=== PATIENT | female | born 1985 ===

== ENCOUNTER 2020-08-25 12:32 | Emergency (ER) | payer SELFPAY ==
--- NOTE | 2020-08-25 13:50 | Vascular Lab Report ---
DUPLEX DOPPLER LOWER EXTREMITY VEINS, RIGHT INDICATION / CLINICAL INFORMATION: Pain and swelling in the right lower extremity. TECHNIQUE: Duplex doppler imaging was performed through the veins of the right lower extremity using venous comp ression and other maneuvers. COMPARISON: None available. FINDINGS: RIGHT COMMON FEMORAL VEIN: Negative. RIGHT FEMORAL VEIN: Negative. RIGHT POPLITEAL VEIN: Negative. RIGHT CALF VEINS: Negative. ADDITIONAL FINDINGS: Popliteal cyst on the right noted measuring 2.9 x 1.3 x 4.2 cm. IMPRESSION: 1. No sonographic evidence for DVT in the right lower extremity. 2. Right popliteal cyst. Signer Name: Scott Morton MD Signed: 08/25/2020 1:46 PM Workstation Name: [id number]
--- NOTE | 2020-08-25 13:57 | Cat Scan Report ---
NONENHANCED CT SCAN OF THE HEAD: INDICATION / CLINICAL INFORMATION: 34 years Female; Left sided GARCIA. TECHNIQUE: Routine CT head without contrast. All CT scans at this location are performed using CT dos e reduction for ALARA by means of automated exposure control. COMPARISON: None. FINDINGS: BRAIN / INTRACRANIAL CONTENTS: No acute hemorrhage, mass effect, midline shift, hydrocephalus, or acu te, large territorial infarct. No chronic infarct or focal atrophy. Normal brain volume and ventricul ar/sulcal size for age. No significant white matter abnormality. CRANIOCERVICAL JUNCTION: No significant abnormality. ORBITS: No significant abnormality of visualized orbits. SINUSES / MASTOIDS: No significant abnormality of the visualized paranasal sinuses or mastoid air elida ls. ADDITIONAL FINDINGS: None. IMPRESSION: Normal nonenhanced CT scan of the brain Signer Name: Michael Marion MD Signed: 08/25/2020 1:52 PM Workstation Name: [id number]
[2020-08-25] MEDS ORDERED: traMADol 50 MG TAB PO ONE (15:26)
[2020-08-25] MEDS ORDERED: dexAMETHasone 20 MG/5 ML VIAL IM ONE (15:26)
--- NOTE | 2020-08-25 15:41 | Emergency Department Report ---
ED General Adult HPI - General Chief complaint: Headache Stated complaint: NECK PAIN/HEADACHE Time Seen by Provider: 08/25/20 15:17 Source: patient Mode of arrival: Ambulatory Limitations: No Limitations - History of Present Illness Initial comments: Patient is a 34-year-old female who presents emergency room with complaints of left-sided neck pain that began 3 weeks ago. She states that she also has a left-sided headache that has been ongoing for 3 weeks. She states that occasionally she feels tingling in her bilateral hands. She denies any fall or injury. She denies any complete numbness, weakness, nausea, vomiting, diarrhea, fever, vision changes. She states that also for several weeks she has intermittent swelling of her right foot but denies any swelling currently. She denies any calf pain, fall, injury. Past medical history of herniated disc, asthma, heart thrombus which she is currently on Eliquis. She denies any missed doses of Eliquis. No allergies to medications. - Related Data Previous Rx's Medication Instructions Recorded Last Taken Type Amoxicillin/Potassium Clav 1 each PO BID 10 Days #20 tablet 08/25/20 Unknown Rx [Augmentin 875-125 Tablet] Gabapentin 100 mg PO Q8HR PRN #20 capsule 08/25/20 Unknown Rx HYDROcodone/APAP 5-325 [Cohocton 1 each PO Q6HR PRN #12 tablet 08/25/20 Unknown Rx 5/325] Prednisone [predniSONE 10 mg 10 mg PO .TAPER #1 tab.ds.pk 08/25/20 Unknown Rx (6-Day Pack, 21 Tabs)] Allergies Allergy/AdvReac Type Severity Reaction Status Date / Time No Known Allergies Allergy Unverified 08/25/20 12:46 ED Review of Systems ROS: Stated complaint: NECK PAIN/HEADACHE Other details as noted in HPI Comment: All other systems reviewed and negative ED Past Medical Hx - Past Medical History Previous Medical History?: Yes Hx Congestive Heart Failure: Yes - Surgical History Past Surgical History?: Yes Additional Surgical History: Hysterectomy. Gastric sleeve. back surgery - Medications Home Medications: Home Medications Medication Instructions Recorded Confirmed Last Taken Type Amoxicillin/Potassium Clav 1 each PO BID 10 Days #20 tablet 08/25/20 Unknown Rx [Augmentin 875-125 Tablet] Gabapentin 100 mg PO Q8HR PRN #20 capsule 08/25/20 Unknown Rx HYDROcodone/APAP 5-325 [Cohocton 1 each PO Q6HR PRN #12 tablet 08/25/20 Unknown Rx 5/325] Prednisone [predniSONE 10 mg 10 mg PO .TAPER #1 tab.ds.pk 08/25/20 Unknown Rx (6-Day Pack, 21 Tabs)] ED Physical Exam - General Limitations: No Limitations General appearance: alert, in no apparent distress - Head Head exam: Present: atraumatic, normocephalic - Eye Eye exam: Present: normal appearance, PERRL, EOMI. Absent: periorbital swelling, periorbital tenderness Pupils: Present: normal accommodation - ENT ENT exam: Present: mucous membranes moist - Neck Neck exam: Present: normal inspection, tenderness (left sided C-spine paraspinal muscular ttp, no midline C-spine, T-spine or L-spine ttp, no step offs, no deformities), full ROM, other (no carotid bruit). Absent: meningismus, lymphadenopathy, thyromegaly - Respiratory Respiratory exam: Present: normal lung sounds bilaterally. Absent: respiratory distress, wheezes, rales, rhonchi, stridor, chest wall tenderness, accessory muscle use, decreased breath sounds, prolonged expiratory - Cardiovascular Cardiovascular Exam: Present: regular rate, normal rhythm, normal heart sounds. Absent: systolic murmur, diastolic murmur, rubs, gallop - Extremities Exam Extremities exam: Present: normal inspection, full ROM, normal capillary refill, other (no edema of the BLE, no calf ttp bilaterally, no increased warmth, no erythema, no skin changes, FROM of the BLE, neurovascularly intact). Absent: tenderness, pedal edema, joint swelling, calf tenderness - Back Exam Back exam: Present: normal inspection, full ROM. Absent: paraspinal tenderness, vertebral tenderness - Neurological Exam Neurological exam: Present: alert, oriented X3 - Psychiatric Psychiatric exam: Present: normal affect, normal mood - Skin Skin exam: Present: warm, dry, intact ED Course Vital Signs 08/25/20 08/25/20 12:47 17:32 Temperature 98.0 F Pulse Rate 77 76 Respiratory 8 L 16 Rate Blood Pressure 145/92 Blood Pressure 144/87 [Right] O2 Sat by Pulse 100 100 Oximetry ED Medical Decision Making - Radiology Data Radiology results: report reviewed NONENHANCED CT SCAN OF THE HEAD: INDICATION / CLINICAL INFORMATION: 34 years Female; Left sided GARCIA. TECHNIQUE: Routine CT head without contrast. All CT scans at this location are performed using CT dose reduction for ALARA by means of automated exposure control. COMPARISON: None. FINDINGS: BRAIN / INTRACRANIAL CONTENTS: No acute hemorrhage, mass effect, midline shift, hydrocephalus, or acute, large territorial infarct. No chronic infarct or focal atrophy. Normal brain volume and ventricular/sulcal size for age. No significant white matter abnormality. CRANIOCERVICAL JUNCTION: No significant abnormality. ORBITS: No significant abnormality of visualized orbits. SINUSES / MASTOIDS: No significant abnormality of the visualized paranasal sinuses or mastoid air cells. ADDITIONAL FINDINGS: None. IMPRESSION: Normal nonenhanced CT scan of the brain Signer Name: Michael Marion MD Signed: 08/25/2020 1:52 PM Workstation Name: [id number] Transcribed By: Dictated By: Michael Veronica MD Electronically Authenticated By: Michael Veronica MD Signed Date/Time: 08/25/20 135 DD/ 1351 TD/TT: DUPLEX DOPPLER LOWER EXTREMITY VEINS, RIGHT INDICATION / CLINICAL INFORMATION: Pain and swelling in the right lower extremity. TECHNIQUE: Duplex doppler imaging was performed through the veins of the right lower extremity using venous compression and other maneuvers. COMPARISON: None available. FINDINGS: RIGHT COMMON FEMORAL VEIN: Negative. RIGHT FEMORAL VEIN: Negative. RIGHT POPLITEAL VEIN: Negative. RIGHT CALF VEINS: Negative. ADDITIONAL FINDINGS: Popliteal cyst on the right noted measuring 2.9 x 1.3 x 4.2 cm. IMPRESSION: 1. No sonographic evidence for DVT in the right lower extremity. 2. Right popliteal cyst. Signer Name: Scott Geller MD Signed: 08/25/2020 1:46 PM Workstation Name: [id number] Transcribed By: Dictated By: SCOTT GELLER Electronically Authenticated By: SCOTT GELLER Signed Date/Time: 08/25/20 1346 DD/ 134 TD/TT: - Medical Decision Making Patient is a 34-year-old female who presents emergency room with complaints of left-sided neck pain that began 3 weeks ago. She states that she also has a left-sided headache that has been ongoing for 3 weeks. She states that occasionally she feels tingling in her bilateral hands. She denies any fall or injury. She denies any complete numbness, weakness, nausea, vomiting, diarrhea, fever, vision changes. She states that also for several weeks she has intermittent swelling of her right foot but denies any swelling currently. She denies any calf pain, fall, injury. Past medical history of herniated disc, asthma, heart thrombus which she is currently on Eliquis. She denies any missed doses of Eliquis. No allergies to medications. VSS. on exam: left sided C- spine paraspinal muscular ttp, no midline C-spine, T-spine or L-spine ttp, no step offs, no deformities, no edema of the BLE, no calf ttp bilaterally, no increased warmth, no erythema, no skin changes, FROM of the BLE, neurovascularly intact. imaging was ordered and completed prior to my examination. CT head: Normal nonenhanced CT scan of the brain. US RLE: 1. No sonographic evidence for DVT in the right lower extremity. 2. Right popliteal cyst. Patient given tramadol, Robaxin, dexamethasone, morphine while in the emergency department and continues to have discomfort. Dr. Merino, ER attending evaluated patient at bedside and states that symptoms appear most consistent with cervical radiculopathy and advised to give patient 1 g of Dilaudid IM and she also had some mild left-sided maxillary sinus tenderness to percussion, advised to treat patient for acute sinusitis and cervical radiculopathy, advised to give patient Augmentin, Neurontin, Cohocton, prednisone. Symptoms improved after Dilaudid IM. Patient referred to orthopedic/spine and primary care physician. Advised patient Please take medication as prescribed. Do not drive or operate machinery while taking pain medication. Increase your water intake. Follow-up with your primary care doctor. Follow-up with orthopedic/spine doctor. Return to emergency room for any new or worsening symptoms. - Differential Diagnosis Cervical radiculopathy, muscle strain, neuropathy, herniated disc, DDD Critical care attestation.: If time is entered above; I have spent that time in minutes in the direct care of this critically ill patient, excluding procedure time. ED Disposition Clinical Impression: Neck pain Headache Qualifiers: Headache type: unspecified Headache chronicity pattern: acute headache Intractability: not intractable Qualified Code(s): R51.9 - Headache, unspecified Acute sinusitis Qualifiers: Sinusitis location: maxillary Recurrence: non-recurrent Qualified Code(s): J01.00 - Acute maxillary sinusitis, unspecified Disposition: - TO HOME OR SELFCARE Is pt being admited?: No Does the pt Need Aspirin: No Condition: Stable Instructions: Sinusitis (ED), Cervical Radiculopathy (ED) Additional Instructions: Please take medication as prescribed. Do not drive or operate machinery while taking pain medication. Increase your water intake. Follow-up with your primary care doctor. Follow-up with orthopedic/spine doctor. Return to emergency room for any new or worsening symptoms. Prescriptions: Amoxicillin/Potassium Clav [Augmentin 875-125 Tablet] 1 each PO BID 10 Days #20 tablet Gabapentin 100 mg PO Q8HR PRN #20 capsule PRN Reason: pain HYDROcodone/APAP 5-325 [Cohocton 5/325] 1 each PO Q6HR PRN #12 tablet PRN Reason: Pain , Severe (7-10) Prednisone [predniSONE 10 mg (6-Day Pack, 21 Tabs)] 10 mg PO .TAPER #1 tab.ds.pk Referrals: PRIMARY CAREMD [Primary Care Provider] - 2-3 Days JADA MAHER MD [Staff Physician] - 2-3 Days [facility] [Provider Group] - 2-3 Days [facility] [Provider Group] - 2-3 Days LUIS CHRISTIAN II, MD [Staff Physician] - 2-3 Days Time of Disposition: 17:48 Print Language: [place]
[2020-08-25] MEDS ORDERED: MORPHINE 4 MG/1 ML INJ IM ONE (16:40)
[2020-08-25] MEDS ORDERED: HYDROmorphone 1 MG/1 ML INJ IM ONE (17:42)
[2020-08-25 17:55] VITALS: BP 144/87
== END 2020-08-25 18:04 | disposition home or self-care (01) ==
LOC: ED 12:32
DX: J01.00 Acute maxillary sinusitis, unspecified (principal); R51.9 Headache, unspecified; R20.2 Paresthesia of skin; M54.2 Cervicalgia; I50.9 Heart failure, unspecified; Z90.710 Acquired absence of both cervix and uterus
CPT/HCPCS: 70450; 93971; 96372; 99283; J1100; J1170; J2270

== ENCOUNTER 2020-09-01 20:18 | Emergency (ER) | payer MEDICAID ==
--- NOTE | 2020-09-01 20:37 | Emergency Department Report ---
Blank Doc - Documentation Documentation: 34-year-old female that presents with headache with dizziness and n/v. This initial assessment/diagnostic orders/clinical plan/treatment(s) is/are subject to change based on patient's health status, clinical progression and re- assessment by fellow clinical providers in the ED. Further treatment and workup at subsequent clinical providers discretion. Patient/guardians urged not to elope from the ED as their condition may be serious if not clinically assessed and managed. Initial orders include: 1- Patient sent to [facility] for further evaluation and treatment 2- labs 3- UA 4- CT head
[2020-09-01 20:45] VITALS: BP 140/77
[2020-09-01 21:13] LABS: Basophils # (Auto) 0.1 K/mm3 (0.0-0.1); Basophils % (Auto) 0.7 % (0.0-1.8); Eosinophils # (Auto) 0.1 K/mm3 (0.0-0.4); Eosinophils % (Auto) 0.9 % (0.0-4.3); Hematocrit 39.1 % (30.3-42.9); Hemoglobin 13.1 gm/dl (10.1-14.3); Lymphocytes # (Auto) 3.2 K/mm3 (1.2-5.4); Lymphocytes % (Auto) 33.9 % (13.4-35.0); Mean Corpuscular HGB Conc 34 % (30-34); Mean Corpuscular Volume 87 fl (79-97); Monocytes # (Auto) 0.4 K/mm3 (0.0-0.8); Monocytes % (Auto) 4.4 % (0.0-7.3); Platelet Count 384 K/mm3 (140-440); Red Blood Count 4.47 M/mm3 (3.65-5.03); Red Cell Distribution Width 12.8 % (13.2-15.2)
[2020-09-01 21:22] LABS: Alanine Aminotransferase 26 units/L (7-56); Albumin 3.9 g/dL (3.9-5); BUN/Creatinine Ratio 17; Blood Urea Nitrogen 17 mg/dL (7-17); Hemolysis Index 17
--- NOTE | 2020-09-01 21:45 | Cat Scan Report ---
CT head/brain wo con INDICATION / CLINICAL INFORMATION: 34 years Female; headache/dizziness. TECHNIQUE: Routine CT head without contrast. All CT scans at this location are performed using CT dos e reduction for ALARA by means of automated exposure control. COMPARISON: None. FINDINGS: BRAIN / INTRACRANIAL CONTENTS: No acute hemorrhage, mass effect, midline shift, hydrocephalus, or acu te, large territorial infarct. No chronic infarct or atrophy appreciated. No significant white matter abnormality. CRANIOCERVICAL JUNCTION: No significant abnormality. ORBITS: No significant abnormality of visualized orbits. SINUSES / MASTOIDS: No significant abnormality in the visualized paranasal sinuses or mastoid air elida ls. ADDITIONAL FINDINGS: None. IMPRESSION: 1. No focal mass, hemorrhage, hydrocephalus, or acute, large territorial infarct. Signer Name: Charly Gamino MD, III Signed: 09/01/2020 9:40 PM Workstation Name: [id number] [id number]
[2020-09-02] MEDS ORDERED: METOCLOPRAMIDE 10 MG/2 ML INJ ONE (01:49)
[2020-09-02] MEDS ORDERED: KETOROLAC 30 MG/1 ML INJ ONE (01:49)
[2020-09-02] MEDS ORDERED: SODIUM CHLORIDE 0.9% 1000 ML 1,000 ML ONE (01:50)
[2020-09-02] MEDS ORDERED: diphenhydrAMINE 50 MG/ML VIAL ONE (01:50)
== END 2020-09-02 06:30 | disposition home or self-care (01) ==
LOC: ED 20:18
DX: G43.909 Migraine, unspecified, not intractable, without status migrainosus (principal)
CPT/HCPCS: 36415; 70450; 80053; 85025; 99284; J1200; J1885; J2765; J7030